=== PATIENT | female | born 1995 | race Caucasian/White ===

== ENCOUNTER 2023-03-27 15:50 | Inpatient (IN) ==
--- NOTE | 2023-03-27 16:23 | History & Physical Report ---
Date of Service March 27, 2023 Assessment & Plan (1) High blood pressure affecting in third trimester, antepartum: Plan: Patient has had a BP reading that was hypertensive. Urine dipstick was done at bedside but was negative for protein. A CBC, CMP, and urine protein/creatinine ration were ordered to assess for possible thrombocytopenia, increased transaminase levels, changes of renal function (reflective of increased creatinine levels). Although she has not yet met diagnosis of either gHTN or preeclampsia, workup is ongoing. Meanwhile she was offered elective IOL as she is >39wk and has demonstrated a hypertensive reading, and she wishes to proceed. Cervix examined by Dr. Stylse and is 480/-2 and plan will be for pitocin. History of Present Illness Chief Complaint: Patient is a 27 yo F, , w/ a PMHX of anxiety, chronic headaches, who was sent over from the OB clinic after registering a high BP reading. Primary Care Provider: NO PCP patient has been experiencing lower pelvic pain and mild abdominal cramping. Patient has been experiencing more frequent HAs over the last few weeks, for which she'd been taking Tylenol. CARPENTER's would always be relieved by Tylenol. No vision changes: no blurry, double vision or sense of halos, seeing spots around her visual line of sight. Patient endorsed lower abdominal, pain, below umbilicus but no RUQ pain. No N/V/C but increased diarrhea over last week or two. Patient does not think she has any Hx of gestational HTN, preeclampsia in h er family Hx. Patient does not endorse any recent trauma, has not had any loss of fluid or blood from the vaginal area but she is experiencing some irregular contractions. Allergies Allergy/AdvReac Type Severity Reaction Status Date / Time Sulfa (Sulfonamide Allergy Mild Rash Verified 03/27/23 15:17 Antibiotics) Home Medications Medication Instructions Recorded Confirmed Type fluoxetine [Prozac] 40 mg PO DAILY 08/30/22 03/27/23 History prenat.vits,alexander,uis-rrvq-emwry 1 tab PO DAILY 08/30/22 03/27/23 History ferrous sulfate 325 mg PO Q OTHER DAY 01/22/23 03/27/23 History Past Med/Surg History Medical History Anxiety Chicken pox History of acne Migraine Surgical History S/P wisdom tooth extraction Family History Grandfather (Maternal) Myocardial infarction Coronary heart disease Hypertension Grandmother (Maternal) Atrial fibrillation Hyperlipidemia Uterine cancer Father Hypertension Denies family history of Ovarian cancer Breast cancer Colorectal cancer Thromboembolic disorder Social History Smoking Status: Never smoker Second Hand Exposure: No; Do You Dip or Chew Tobacco: No; Hx Alcohol Use: No Hx Substance Use: No Preferred Language: Tajik Communication Ability: Effective Picker Feeder Required: No Beliefs That Will Affect Care: None marital status: marital status details: spouse Current Living Situation: Spouse Current Living Situation Comment: lives with spouse, no pets current occupational status: employed current occupation: [employer] Feels Safe at Home: Yes Safety Concerns: Feels Safe At This Time Dental Care, Regularly: Yes Seatbelt Use: always Sunscreen Use: Yes Assistive Devices: None Review of Systems Constitutional: no fever and no chills Eyes: no diplopia, not seeing flashes, no spots in vision and no worsening vision Respiratory: no cough and no dyspnea Cardiovascular: no chest pain and no palpitations Gastrointestinal: + diarrhea/loose stools; no nausea and no vomiting Physical Exam Constitutional: WD/WN, vitals as above Respiratory: normal respiratory effort, lungs clear to auscultation Cardiovascular: RRR, no murmur, no edema Gastrointestinal (Abdomen): Percussion/Palpation: + abdomen tender (right sided tenderness, +4/10 with deep palpation (uterine, not RUQ)) Neurologic: deep tendon reflexes 2+ bilaterally and moves all extremities Results & Data Results & Data Vital Signs (Past 12 Hours) Vital Signs Pulse BP 03/27/23 16:07 100 H 131/80 03/27/23 15:58 93 H 133/82 Supervising Physician Co-Signing Physician Notes Resident Physician Supervision Note: I interviewed and examined the patient. Discussed with Dr. Romo and agree with findings and plan as documented in the note. Any exceptions or clarifications are listed here: [ ] Documented By: Honey Styles MD, FACOG
[2023-03-27 16:54] LABS: Hematocrit (blood only) 33.6 % (37.0-47.0); Hemoglobin 11.1 g/dl (12.0-16.0); Mean Corpuscular Hemoglobin 28.8 pg (25.0-34.0); Mean Corpuscular Volume 87.3 fL (80.0-100.0); Mean Platelet Volume 11.2 fL (9.4-12.4); Platelet Count 219 K/uL (130-400); RDW Coefficient of Variation 13.6 % (11.5-14.5); RDW Standard Deviation 42.7 fL (36.4-46.3); Red Blood Count 3.85 M/uL (4.20-5.40); White Blood Count 9.41 K/ul (4.8-10.8)
[2023-03-27] MEDS ORDERED: LIDOCAINE 1% LOCAL 20 ML VIAL INFIL PRN (17:05)
[2023-03-27] MEDS ORDERED: OXYTOCIN 30 UNITS/500 ML BAG IV PRN ×2 (17:05)
[2023-03-27 17:07] LABS: Alanine Aminotransferase 13 U/L (7-52); Albumin Globulin Ratio 0.9 (0.9-2); Albumin Level 3.6 gm/dl (3.4-5.0); Alkaline Phosphatase 139 U/L (34-104); Anion Gap 7 (3-11); Aspartate Aminotransferase 18 U/L (13-39); BUN Creatinine Ratio 19.5 (10-20); Bilirubin,Total 0.3 mg/dl (0.2-1.0); Blood Urea Nitrogen 8 mg/dl (6-23); Calcium 9.5 mg/dl (8.6-10.3); Carbon Dioxide 21 mmol/L (21-32); Chloride 105 mmol/L (98-107); Creatinine Clr Calc Pharmacy 256.6 ml/min; Est GFR (African American) > 150.0 ml/min; Est GFR (Non-African American) 142.6 ml/min; Globulin 3.8 gm/dl (2.5-4.0); Glucose 77 mg/dl (70-99(Fasting)); Potassium 3.8 mmol/L (3.5-5.1); Sodium 133 mmol/L (136-145); Total Protein 7.4 gm/dl (6.0-8.3)
[2023-03-27 17:21] LABS: Creatinine Urine Random 29.5 mg/dl; Protein Creatinine Ratio Urine 0.2 (0-0.2); Total Protein Urine Random 5.7 mg/dl (0-11.9)
[2023-03-27] MEDS: LACTATED RINGER'S 1,000 ML IV PRN ×2 (17:39→19:41)
[2023-03-27] MEDS ORDERED: SODIUM CHLORIDE 0.9% PF INJ 10 ML VIAL ONE (18:52)
[2023-03-27] MEDS ORDERED: BUPIVACAINE 0.25% PF 30 ML VIAL ONE (18:52)
[2023-03-27] MEDS ORDERED: fentaNYL citrate PF 100 MCG/2 ML VIAL ONE (18:52)
[2023-03-27] MEDS ORDERED: ePHEDrine sulfate 50 MG/ML AMP ONE (18:52)
[2023-03-27] MEDS ORDERED: LIDOCAINE 2%/EPINEPHRINE 1:200,000 20 ML PF ONE (18:53)
[2023-03-27] MEDS ORDERED: fentaNYL 2MCG/ML ROPIVACAINE 1.25MG/ML 100 ML BAG EPI ONE (18:53)
--- NOTE | 2023-03-27 19:13 | Anesthesiology Consultation ---
Date of Service March 27, 2023 Assessment & Plan Chart Review Chart Review: Acceptable Risk for Labor Epidural Consults Requested none ASA ASA2 Proposed Anesthesia Anesthesia Type: Labor Epidural Risk / Benefits Reviewed With: PT / POA / Parent / Guardian, Accepts Plan and Informed Consent Obtained History Height/Weight Height: 5 ft 9 in Weight: 96.162 kg Allergies Allergy/AdvReac Type Severity Reaction Status Date / Time Sulfa (Sulfonamide Allergy Mild Rash Verified 03/27/23 15:17 Antibiotics) Medications Home Medications Medication Instructions Recorded Confirmed Last Taken fluoxetine [Prozac] 40 mg PO DAILY 08/30/22 03/27/23 03/26/23 20:00 prenat.vits,alexander,fyx-grns-dizbk 1 tab PO DAILY 08/30/22 03/27/23 03/26/23 20:00 ferrous sulfate 325 mg PO Q OTHER DAY 01/22/23 03/27/23 03/25/23 20:00 Active Medications Generic Name Dose Route Start Last Admin Trade Name Freq PRN Reason Stop Dose Admin Lactated Ringer's 1,000 mls @ 125 mls/hr 03/27/23 17:05 03/27/23 18:45 Lr IV 03/29/23 17:04 999 mls/hr .Q8H PRN Infusion L&D Protocol Protocol Oxytocin 30 units in 500 mls @ 4 mls/hr 03/27/23 17:05 03/27/23 19:04 Pitocin IV 03/29/23 17:04 0.24 units/hr .Q24H PRN 4 mls/hr Labor Induction/Augmentation Titration Protocol 0.24 UNITS/HR Past Medical History Medical History Anxiety Chicken pox History of acne Migraine Exercise / Class Metabolic Activity II 4-5 Yardwork/Stairs/Walk up hill Past Family History Family History Grandfather (Maternal) Myocardial infarction Coronary heart disease Hypertension Grandmother (Maternal) Atrial fibrillation Hyperlipidemia Uterine cancer Father Hypertension Denies family history of Ovarian cancer Breast cancer Colorectal cancer Thromboembolic disorder Past Surgical History Surgical History S/P wisdom tooth extraction Past Anesthesia History No Hx of Anesthesia Complications and No Family Hx of Anesthesia Complications History of PONV No Hx of PONV and No Hx of Motion Sickness Social History Smoking Status: Never smoker Do You Dip or Chew Tobacco: No Hx Alcohol Use: No Hx Substance Use: No Physical Exam Vital Signs Last Vital Signs Temp 98.1 F 03/27/23 16:41 Pulse 91 H 03/27/23 18:18 Resp 20 03/27/23 16:41 BP 134/82 03/27/23 18:18 ENMT Mouth: no dentition abnormality Thyromental Distance: > or= 3.5 Finger Breadths Mallampati Class: II Neck normal visual inspection Respiratory normal respiratory effort Auscultation: lungs clear to auscultation bilaterally Cardiovascular Rate/Rhythm: regular rate and regular rhythm Testing Laboratory Results 03/27/23 16:23 03/27/23 16:23
[2023-03-27] MEDS ORDERED: diphenhydrAMINE 50 MG/ML VIAL IV PRN (19:33)
[2023-03-27] MEDS ORDERED: NALOXONE HCL 0.4 MG/1 ML VIAL/CARP IV PRN (19:33)
[2023-03-27] MEDS ORDERED: LIDOCAINE 2%/EPINEPHRINE 1:200,000 20 ML PF EPI STA (19:33)
[2023-03-27] MEDS ORDERED: fentaNYL citrate PF 100 MCG/2 ML VIAL EPI STA (19:33)
[2023-03-27] MEDS ORDERED: NALBUPHINE HCL INJ 10 MG/ML AMP IV PRN (19:33)
[2023-03-27] MEDS ORDERED: fentaNYL 2MCG/ML ROPIVACAINE 1.25MG/ML 100 ML BAG EPI PRN (19:33)
[2023-03-27] MEDS ORDERED: LIDOCAINE 2% MPF LOCAL 5 ML VIAL EPI PRN (19:33)
[2023-03-27] MEDS ORDERED: ROPIVACAINE 0.5% PF 5 MG/ML 20 ML VIAL EPI PRN (19:33)
[2023-03-27] MEDS ORDERED: BUPIVACAINE 0.25% PF 30 ML VIAL EPI PRN (19:33)
[2023-03-27] MEDS ORDERED: fentaNYL citrate PF 100 MCG/2 ML VIAL EPI PRN (19:33)
[2023-03-27] MEDS ORDERED: ePHEDrine sulfate 50 MG/ML AMP IV PRN (19:33)
[2023-03-27] MEDS ORDERED: BUPIVACAINE 0.25% PF 30 ML VIAL EPI STA (19:33)
[2023-03-27] MEDS ORDERED: ONDANSETRON INJ 2 MG/ML 2 ML VIAL IV PRN (19:33)
[2023-03-27] MEDS ORDERED: NALOXONE HCL 1 MG in SODIUM CHLORIDE 0.9% 1,000 ML IV PRN (19:33)
[2023-03-27] MEDS ORDERED: SODIUM CHLORIDE 0.9% PF INJ 10 ML VIAL EPI PRN (19:33)
[2023-03-27] MEDS ORDERED: SODIUM CHLORIDE 0.9% PF INJ 10 ML VIAL EPI STA (19:33)
--- NOTE | 2023-03-28 00:24 | Delivery Summary ---
Vaginal Delivery Summary Date of Service March 28, 2023 Vaginal Delivery Summary DIAGNOSES: 1. Barney intrauterine at 39w4d gestation. 2. Induction of labor. 3. Group B Streptococcus Neg. PROCEDURE: Spontaneous vaginal delivery and repair of second degree laceration. SURGEON: Honey Styles MD. PHARMACY PICKING TECHNICIAN: None. ESTIMATED BLOOD LOSS: 200 mL. COMPLICATIONS: None. PLACENTA: Spontaneous and intact with a 3-vessel cord. DISPOSITION: Stable to labor and delivery. DESCRIPTION: The patient pushed well and brought the head to in DOA position. The infant's head was allowed to deliver with contraction force and no further active pushing, with the perineum protected during this time. There was one loose nuchal cord and compound presentation of both arms around the neck; the body was delivered through the cord rather than reducing it. The right shoulder was anterior. The shoulders and body delivered without any difficulty, and the was placed on the maternal abdomen. It was vigorous and moving all extremities, and making respiratory efforts. The cord was doubly clamped by the MD and then cut by the FOB. The placenta delivered spontaneously and was noted to be intact and with a 3VC. The cervix, vagina and perineum were examined and were found to have a second degree perineal laceration which was repaired in the usual manner with vicryl suture, including a crown stitch to rebuild the perineal body. The fundus was firm and lochia minimal immediately after delivery. [facility] [place] Vaginal Delivery Charge Vaginal Delivery Codes: 80936 global code for the antepartum, delivery, and post-
[2023-03-28] MEDS ORDERED: DIPHTHERIA/TETANUS/PERTUSSIS Vaccine (Tdap, Age 7+yrs) 0.5mL SYR/VL IM ONE (00:30)
[2023-03-28] MEDS ORDERED: ACETAMINOPHEN 325 MG TAB PO PRN (00:30)
[2023-03-28] MEDS ORDERED: HYDROCORTISONE ACETATE 25 MG SUPP PR PRN (00:30)
[2023-03-28] MEDS ORDERED: oxyCODONE/ACETAMINOPHEN 5mg/325mg TAB PO PRN (00:30)
[2023-03-28] MEDS ORDERED: BENZOCAINE 20% SPRY 85 APPLN/85 GM CAN EXT PRN (00:30)
[2023-03-28] MEDS ORDERED: COUGH DROP (SUGAR FREE) LOZ 24 LOZ/1 BOX BUCCAL PRN (02:59)
--- NOTE | 2023-03-28 06:16 | Obstetrical Progress Note ---
Date of Service March 28, 2023 Assessment & Plan (1) Vaginal delivery: Plan 27 yo status post induced labor/vaginal delivery on 03/27/23, w/ 2nd deg LAC - Pt doing well clinically. Feels well today. Eating well, voiding well, ambulating well. Pain well controlled with PRN pain meds. - Routine care -- OOB, ambulation, diet progression as tolerated Vital Signs reviewed and WNL. (Tmax at 36.7) except as noted: P 117 after delivery, BP w/ diastolic 57 hour and half post delivery Hemoglobin Reviewed. 10.1 (03/27/23) ___ (today). Blood Type: A+, GBS-, Rubella Immune. Encourage ambulation, monitor and control pain with Motrin PRN, resume regular diet, monitor lochia. Breast feeding encouraged. After discharge will have 6 week follow-up with ___. Pt counselled on discharge instructions (only if they are going home that day). Subjective Ambulation: ambulating normally Voiding: no voiding problems Passing Gas:: Yes Diet Tolerance:: regular diet Lochia:: Moderate Feeding Type:: breast feeding Current Pain Level(1-10): 2 (perineal lac pain) Constitutional: no fever or no chills Eyes: no diplopia, no seeing flashes, no spots in vision or no worsening vision Respiratory: no cough or no dyspnea Cardiovascular: no chest pain or no palpitations Gastrointestinal: no nausea, no vomiting or no diarrhea/loose stools Neurologic: no headache(s) Physical Exam Constitutional WD/WN, vitals as above Respiratory normal respiratory effort, lungs clear to auscultation Cardiovascular RRR, no murmur, no edema Gastrointestinal (Abdomen) normal bowel sounds, soft, nontender, no hepatosplenomegaly Neurologic moves all extremities Results & Data Vital Signs (Past 12 Hours) Vital Signs Temp Pulse Resp BP Pulse Ox 03/28/23 01:49 18 03/28/23 01:19 18 03/28/23 00:49 18 03/28/23 00:36 18 03/28/23 00:19 18 03/28/23 01:04 18 03/28/23 00:19 20 03/27/23 19:15 18 03/28/23 02:19 116 H 136/80 03/28/23 02:04 117 H 126/80 03/28/23 01:49 106 H 136/79 03/28/23 01:34 107 H 130/79 03/28/23 01:19 112 H 131/57 L 03/28/23 01:07 104 H 125/68 03/28/23 00:49 103 H 150/101 H 03/27/23 23:30 18 03/27/23 23:30 18 03/28/23 00:36 110 H 144/83 H 03/28/23 00:19 114 H 128/65 03/28/23 00:18 108 H 99 03/28/23 00:13 112 H 99 03/28/23 00:08 122 H 98 03/28/23 00:03 121 H 100 03/27/23 23:58 97 03/27/23 23:58 134 H 03/27/23 23:53 100 03/27/23 23:53 112 H 03/27/23 23:48 98 03/27/23 23:48 101 H 03/27/23 23:49 96 H 03/27/23 23:49 113/72 03/27/23 23:43 100 03/27/23 23:43 96 H 03/27/23 23:38 97 03/27/23 23:38 102 H 03/27/23 23:35 105 H 03/27/23 23:35 111/72 03/27/23 23:33 100 03/27/23 23:33 103 H 03/27/23 23:28 99 03/27/23 23:28 100 H 03/27/23 23:00 18 03/27/23 23:00 18 03/27/23 23:23 99 03/27/23 23:23 97 H 03/27/23 23:18 100 03/27/23 23:18 106 H 03/27/23 23:19 103 H 03/27/23 23:19 138/84 03/27/23 22:45 18 03/27/23 22:45 36.8 C 18 03/27/23 23:13 99 03/27/23 23:13 100 H 03/27/23 23:08 99 03/27/23 23:08 97 H 03/27/23 23:04 100 H 03/27/23 23:04 137/87 03/27/23 23:03 99 03/27/23 23:03 96 H 03/27/23 22:58 98 03/27/23 22:58 95 H 03/27/23 22:53 99 03/27/23 22:53 98 H 03/27/23 22:30 18 03/27/23 22:30 18 03/27/23 22:48 98 03/27/23 22:48 97 H 03/27/23 22:49 96 H 03/27/23 22:49 133/82 03/27/23 22:00 18 03/27/23 22:00 18 03/27/23 22:43 98 03/27/23 22:43 96 H 03/27/23 22:38 98 03/27/23 22:38 103 H 03/27/23 22:36 97 H 03/27/23 22:36 139/83 03/27/23 22:33 99 03/27/23 22:33 92 H 03/27/23 22:28 99 03/27/23 22:28 93 H 03/27/23 22:23 98 03/27/23 22:23 103 H 03/27/23 22:20 91 H 03/27/23 22:20 124/71 03/27/23 22:18 98 03/27/23 22:18 93 H 03/27/23 22:13 99 03/27/23 22:13 95 H 03/27/23 22:08 99 03/27/23 22:08 93 H 03/27/23 22:04 91 H 03/27/23 22:04 131/81 03/27/23 22:03 99 03/27/23 22:03 90 03/27/23 21:58 99 03/27/23 21:58 92 H 03/27/23 21:53 100 03/27/23 21:53 89 03/27/23 21:30 18 03/27/23 21:30 18 03/27/23 21:50 92 H 03/27/23 21:50 127/79 03/27/23 21:48 99 03/27/23 21:48 89 03/27/23 21:43 98 03/27/23 21:43 91 H 03/27/23 21:38 99 03/27/23 21:38 86 03/27/23 21:35 89 03/27/23 21:35 124/87 03/27/23 21:33 99 03/27/23 21:33 89 03/27/23 21:28 100 03/27/23 21:28 94 H 03/27/23 21:23 100 03/27/23 21:23 89 03/27/23 21:19 88 03/27/23 21:19 109/61 03/27/23 21:18 98 03/27/23 21:18 89 03/27/23 21:13 99 03/27/23 21:13 92 H 03/27/23 21:00 18 03/27/23 21:00 18 03/27/23 21:08 99 03/27/23 21:08 90 03/27/23 21:04 88 03/27/23 21:04 107/63 03/27/23 21:03 98 03/27/23 21:03 91 H 03/27/23 20:58 99 03/27/23 20:58 90 03/27/23 20:53 98 03/27/23 20:53 93 H 03/27/23 20:49 94 H 03/27/23 20:49 118/68 03/27/23 20:48 100 03/27/23 20:48 92 H 03/27/23 20:43 99 03/27/23 20:43 91 H 03/27/23 20:38 98 03/27/23 20:38 95 H 03/27/23 20:30 18 03/27/23 20:30 36.7 C 18 03/27/23 20:33 99 03/27/23 20:33 92 H 03/27/23 20:31 93 H 03/27/23 20:31 123/67 03/27/23 20:28 100 03/27/23 20:28 96 H 03/27/23 20:23 98 03/27/23 20:23 97 H 03/27/23 19:32 18 03/27/23 19:32 18 03/27/23 19:34 18 03/27/23 19:34 18 03/27/23 19:36 18 03/27/23 19:36 18 03/27/23 19:40 18 03/27/23 19:40 18 03/27/23 19:44 18 03/27/23 19:44 18 03/27/23 20:21 100 H 03/27/23 20:21 142/94 H 03/27/23 19:30 18 03/27/23 19:30 18 03/27/23 20:00 18 03/27/23 20:00 18 03/27/23 20:18 99 03/27/23 20:18 103 H 03/27/23 20:17 97 H 03/27/23 20:17 134/95 03/27/23 20:13 99 03/27/23 20:13 99 H 03/27/23 20:11 102 H 03/27/23 20:11 145/79 H 03/27/23 20:08 99 03/27/23 20:08 99 H 03/27/23 20:07 98 H 03/27/23 20:07 134/85 03/27/23 20:03 98 03/27/23 20:03 95 H 03/27/23 20:01 97 H 03/27/23 20:01 136/79 03/27/23 19:58 98 03/27/23 19:58 98 H 03/27/23 19:57 96 H 03/27/23 19:57 143/83 H 03/27/23 19:53 98 03/27/23 19:53 101 H 03/27/23 19:52 100 H 03/27/23 19:52 146/71 H 03/27/23 19:48 99 03/27/23 19:48 101 H 03/27/23 19:44 100 H 03/27/23 19:44 138/76 03/27/23 19:43 99 03/27/23 19:43 98 H 03/27/23 19:42 94 H 03/27/23 19:42 149/84 H 03/27/23 19:40 103 H 03/27/23 19:40 147/83 H 03/27/23 19:38 99 03/27/23 19:38 102 H 03/27/23 19:38 143/73 H 03/27/23 19:36 99 H 03/27/23 19:36 135/74 03/27/23 19:34 98 H 03/27/23 19:34 132/77 03/27/23 19:33 99 03/27/23 19:33 99 H 03/27/23 19:32 99 H 03/27/23 19:32 140/80 03/27/23 19:30 141/81 H 03/27/23 19:28 100 03/27/23 19:28 92 H 03/27/23 19:28 135/78 03/27/23 19:23 98 03/27/23 19:23 98 H 03/27/23 19:18 99 03/27/23 19:18 95 H 03/27/23 19:13 98 03/27/23 19:13 96 H 03/27/23 18:18 91 H 03/27/23 18:18 134/82
[2023-03-28] MEDS ORDERED: FLUoxetine HCL 20 MG CAP PO SCH (09:00)
[2023-03-28] MEDS: PRENATAL VITAMIN 1 TAB PO SCH (10:14)
[2023-03-28] MEDS: DOCUSATE SODIUM 100 MG CAP PO SCH ×2 (10:14→21:46)
[2023-03-28] MEDS: IBUPROFEN 600 MG TAB PO PRN ×2 (10:14→17:49)
--- NOTE | 2023-03-28 15:19 | Anesthesia Procedure Note ---
Date of Service March 28, 2023 Anesthesia Post Epidural Note Vital Signs Vital Signs: Temp Pulse Resp BP Pulse Ox O2 Del Method 36.5 C 118 H 18 103/71 96 Room Air 03/28/23 03:45 03/28/23 03:45 03/28/23 03:45 03/28/23 03:45 03/28/23 03:45 03/28/23 03:45 Notes Mental Status: alert / awake / arousable Nausea / Vomiting: adequately controlled Pain: adequately controlled Airway Patency, RR, SpO2: stable & adequate BP & HR: stable & adequate Hydration State: stable & adequate Neuraxial Anesthesia: was administered and sensory block is resolving Anesthetic Complications: no major complications apparent and Pt Satisfied with anesthetic care Epidural: Removed without complications and With tip intact
--- NOTE | 2023-03-28 20:19 | Obstetrical Progress Note ---
Date of Service <Bradford Romo MD - Last Filed: 03/29/23 07:40> March 28, 2023 Assessment & Plan <Bradford Romo MD - Last Filed: 03/29/23 07:40> (1) Vaginal delivery: Plan 27 yo , status post on 03/28/23, w/ 2nd deg LAC - Pt doing well clinically. Feels well today. Eating well, voiding well, ambulating well. Pain well controlled with PRN pain meds. - Routine care -- OOB, ambulation, diet progression as tolerated Vital Signs reviewed and WNL. (Tmax at 37.3) except as noted: P as high as 118 following delivery. BP has been normotensive since delivery early on 03/28/23. Hemoglobin Reviewed. 11.1 (03/27/23) ___ (today). Blood Type: A+, GBS-, Rubella Immune. Encourage ambulation, monitor and control pain with Motrin PRN, resume regular diet, monitor lochia. Breast feeding encouraged. After discharge will have 6 week follow-up with Dr. Styles. Pt counselled on discharge instructions. <Mara Casas MD, FACOG - Last Filed: 03/29/23 07:42> (1) Vaginal delivery: Subjective <Bradford Romo MD - Last Filed: 03/29/23 07:40> Ambulation: ambulating normally Voiding: no voiding problems Passing Gas:: Yes Diet Tolerance:: regular diet Lochia:: Moderate Feeding Type:: breast feeding Current Pain Level(1-10): 1 (cramping abdominal pain) Constitutional: no fever or no chills Eyes: no diplopia, no seeing flashes, no spots in vision or no worsening vision Respiratory: no cough or no dyspnea Cardiovascular: no chest pain or no palpitations Gastrointestinal: no nausea, no vomiting, no constipation (has had BM) or no diarrhea/loose stools Genitourinary (female): no dysuria Musculoskeletal: no myalgia (no calf pain) Neurologic: no tingling or no numbness Physical Exam <Bradford Romo MD - Last Filed: 03/29/23 07:40> Constitutional WD/WN, vitals as above Respiratory normal respiratory effort, lungs clear to auscultation Cardiovascular RRR, no murmur, no edema Gastrointestinal (Abdomen) normal bowel sounds, soft, nontender, no hepatosplenomegaly Musculoskeletal Extremities: extremities normal to inspection (no calf pain or tenderness) Results & Data <Bradford Romo MD - Last Filed: 03/29/23 07:40> Vital Signs (Past 12 Hours) Vital Signs Temp Pulse Pulse Resp BP BP Pulse Ox 03/28/23 12:55 37.3 C 104 H 18 119/78 98 03/28/23 09:00 36.9 C 95 H 18 124/76 97 03/28/23 15:30 36.6 C 98 H 16 122/79 98 O2 Del Method 03/28/23 12:55 Room Air 03/28/23 09:00 Room Air 03/28/23 15:30 Room Air <Mara Casas MD, FACOG - Last Filed: 03/29/23 07:42> Co-Signing Physician Notes Resident Physician Supervision Note: I was present with [Aamir] during the history and exam. I discussed the case with the resident and agree with the findings and plan as documented in the note. Any exceptions or clarifications are listed here: [None] Documented By: Mara Casas MD, FACOG
[2023-03-29 06:47] LABS: Hematocrit (blood only) 30.6 % (37.0-47.0); Hemoglobin 9.9 g/dl (12.0-16.0); Mean Corpuscular Hgb Conc 32.4 g/dL (32.0-36.0); Mean Corpuscular Volume 89.7 fL (80.0-100.0); Mean Platelet Volume 11.4 fL (9.4-12.4); Platelet Count 180 K/uL (130-400); RDW Coefficient of Variation 13.9 % (11.5-14.5); RDW Standard Deviation 45.2 fL (36.4-46.3); Red Blood Count 3.41 M/uL (4.20-5.40); White Blood Count 10.38 K/ul (4.8-10.8)
[2023-03-29] MEDS: IBUPROFEN 600 MG TAB PO PRN (07:38)
[2023-03-29] MEDS: DOCUSATE SODIUM 100 MG CAP PO SCH (07:38)
[2023-03-29] MEDS: PRENATAL VITAMIN 1 TAB PO SCH (07:38)
== END 2023-03-29 11:55 | disposition home or self-care (01) | DRG 807 ==
LOC: OPB 15:50 → 4S1 15:52 → 4E2 03-28 02:47

== ENCOUNTER 2025-01-18 10:06 | Inpatient (IN) ==
[2025-01-18] MEDS ORDERED: LIDOCAINE 1% LOCAL 20 ML VIAL INFIL PRN (10:29)
[2025-01-18 11:03] LABS: Hematocrit (blood only) 31.4 % (37.0-47.0); Hemoglobin 10.2 g/dl (12.0-16.0); Mean Corpuscular Hemoglobin 27.3 pg (25.0-34.0); Mean Corpuscular Volume 84.2 fL (80.0-100.0); Platelet Count 238 K/uL (130-400); RDW Standard Deviation 41.0 fL (36.4-46.3); Red Blood Count 3.73 M/uL (4.20-5.40); White Blood Count 8.41 K/ul (4.8-10.8)
[2025-01-18] MEDS: LACTATED RINGER'S 1,000 ML IV PRN (11:43)
--- NOTE | 2025-01-18 11:50 | History & Physical Report ---
Date of Service January 18, 2025 Assessment & Plan (1) Encounter for supervision of normal intrauterine in multigravida, antepartum: Plan: 29 yo at 40 1/7 wga presents for IOL VSS Fetus cat 1 Labor - will start w/ pit GBS neg epidural prn Admission and Anticipated Discharge Date Admission Date: January 18, 2025 History of Present Illness Chief Complaint: IOL Primary Care Provider: NO PCP 29 yo at 40 1/7 wga presents for IOL. 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 current regular cycles denies hx stis Allergies Allergy/AdvReac Type Severity Reaction Status Date / Time Sulfa (Sulfonamide Allergy Mild Rash Verified 01/18/25 10:28 Antibiotics) Home Medications Medication Instructions Recorded Confirmed Type fluoxetine [Prozac] 40 mg PO DAILY 08/30/22 01/18/25 History aqqoxclj-bhw-Qa-FA 1 tab PO DAILY 06/29/24 01/18/25 History [ Plus] Patient History Medical History High blood pressure affecting in third trimester, antepartum Migraine Anxiety Chicken pox History of acne Surgical History S/P wisdom tooth extraction Family History Grandfather (Maternal) Myocardial infarction Coronary heart disease Hypertension Grandmother (Maternal) Atrial fibrillation Hyperlipidemia Uterine cancer Father Hypertension Denies family history of Ovarian cancer Breast cancer Colorectal cancer Thromboembolic disorder Social History Smoking Status: Never smoker Second Hand Exposure: No; Do You Dip or Chew Tobacco: No; Hx Alcohol Use: No Hx Substance Use: No Preferred Language: Maltese Communication Ability: Effective Drafting Technician Required: No Beliefs That Will Affect Care: None marital status: marital status details: Geoff Obrien (29) [phone] Current Living Situation: Spouse Current Living Situation Comment: lives with spouse and son, no pets current occupational status: employed current occupation: [employer] How many Children do You have: 1 Feels Safe at Home: Yes Safety Concerns: Feels Safe At This Time Dental Care, Regularly: Yes Seatbelt Use: always Sunscreen Use: Yes Assistive Devices: None Physical Exam Genitourinary: OB Exam Abdomen: + vertex and + estimated weight (7-8) Manual OB Exam: + cervical dilation 4 cm, + cervical effacement 50% and + station -2 OB Exam Monitor Tracing: + external FHT monitor used, + external uterine monitor used (q6) and + category I (130/mod/+accel/-decel) Results & Data Vital Signs (Past 12 Hours) Vital Signs Temp Pulse Resp BP 01/18/25 10:35 98.2 F 18 01/18/25 10:22 97 H 118/66 Laboratory Results OB Labs: Blood Type A Positive 07/01/24 Antibody Screen NEGATIVE 07/01/24 Hgb 10.3 g/dl (12.0-16.0) L 10/20/24 Hct 31.3 % (37.0-47.0) L 10/20/24 MCV 89.4 fL (80.0-100.0) 07/01/24 Plt Count 244 K/uL (130-400) 07/01/24 Rubella IgG Antibody Immune (Immune) 07/01/24 RPR Nonreactive (Nonreactive) 09/03/22 Treponema pallidum Ab Negative (Negative) 10/20/24 Hep Bs Antigen Negative (Negative) 07/01/24 Hep Bs Antigen NON-REACTIVE (NON-REACTIVE) 09/03/22 Hepatitis C Antibody Negative (Negative) 07/01/24 Hepatitis C Ab (EIA) NON-REACTIVE (NON-REACTIVE) 09/03/22 HIV 1&2 Ab/P24 Ag 4thGn Negative (Negative) 07/01/24 HIV (1&2) Ag & Ab Conf NON-REACTIVE (NON-REACTIVE) 09/03/22 Glucose 1 Hr 50 gm 151 mg/dl (70-130) H 10/20/24 OB Optional Labs: Chlamydia trachomatis RNA Not Detected (NotDetected) 07/01/24 Neisseria gonorrhoeae RNA Not Detected (NotDetected) 07/01/24 Labs Reviewed: horizon 14-negative--mln cfdna-low risk--mln gbs neg Diagnostic Findings posterior plac Coding Level of Care Code None Diagnoses Encounter for supervision of normal intrauterine in multigravida, antepartum Z34.80
[2025-01-18] MEDS: OXYTOCIN 30 UNITS/NSS 30 UNITS/500 ML BAG IV PRN ×2 (12:00→17:49)
[2025-01-18] MEDS ORDERED: NALOXONE HCL 1 MG in SODIUM CHLORIDE 0.9% 1,000 ML IV PRN (13:48)
[2025-01-18] MEDS ORDERED: NALBUPHINE HCL INJ 10 MG/ML AMP IV PRN (13:48)
[2025-01-18] MEDS ORDERED: SODIUM CHLORIDE 0.9% PF INJ 10 ML VIAL EPI PRN (13:48)
[2025-01-18] MEDS ORDERED: fentANYL 2 MCG/ML BUPIVacaine 0.125%-NSS 100ML BAG EPI PRN (13:48)
[2025-01-18] MEDS ORDERED: ROPIVACAINE 0.5% PF 5 MG/ML 20 ML VIAL EPI PRN (13:48)
[2025-01-18] MEDS ORDERED: diphenhydrAMINE 50 MG/ML VIAL IV PRN (13:48)
[2025-01-18] MEDS ORDERED: NALOXONE HCL 0.4 MG/1 ML VIAL/CARP IV PRN (13:48)
[2025-01-18] MEDS ORDERED: ONDANSETRON INJ 2 MG/ML 2 ML VIAL IV PRN (13:48)
[2025-01-18] MEDS ORDERED: LIDOCAINE 2% MPF LOCAL 5 ML VIAL EPI PRN (13:48)
[2025-01-18] MEDS: BUPIVACAINE 0.25% PF 30 ML VIAL ONE (14:02)
[2025-01-18] MEDS: fentANYL 2 MCG/ML BUPIVacaine 0.125%-NSS 100ML BAG ONE (14:10)
--- NOTE | 2025-01-18 14:12 | Anesthesiology Consultation ---
Date of Service January 18, 2025 Assessment & Plan (1) Encounter for pre-operative examination: Chart Review Chart Review: Patient NOT seen in Pre Admission Testing and Acceptable Risk for Labor Epidural Consults Requested none History Height/Weight Height: 5 ft 8 in Weight: 92.87 kg Allergies Allergy/AdvReac Type Severity Reaction Status Date / Time Sulfa (Sulfonamide Allergy Mild Rash Verified 01/18/25 10:28 Antibiotics) Medications Home Medications Medication Instructions Recorded Confirmed Last Taken fluoxetine [Prozac] 40 mg PO DAILY 08/30/22 01/18/25 01/17/25 08:00 [id number] 1 tab PO DAILY 06/29/24 01/18/25 01/18/25 08:00 [ Plus] Active Medications Generic Name Dose Route Start Last Admin Trade Name Freq PRN Reason Stop Dose Admin Oxytocin 30 units in 500 mls @ 6 mls/hr 01/18/25 10:29 01/18/25 13:00 Pitocin 30 Units/Nss IV 01/20/25 10:28 0.36 units/hr .Q24H PRN 6 mls/hr Labor Induction/Augmentation Titration Protocol 0.36 UNITS/HR Lactated Ringer's 1,000 mls @ 125 mls/hr 01/18/25 10:29 01/18/25 11:43 Lr IV 01/20/25 10:28 125 mls/hr .Q8H PRN Administration L&D Protocol Protocol Past Medical History Medical History High blood pressure affecting in third trimester, antepartum Migraine Anxiety Chicken pox History of acne Past Family History Family History Grandfather (Maternal) Myocardial infarction Coronary heart disease Hypertension Grandmother (Maternal) Atrial fibrillation Hyperlipidemia Uterine cancer Father Hypertension Denies family history of Ovarian cancer Breast cancer Colorectal cancer Thromboembolic disorder Past Surgical History Surgical History S/P wisdom tooth extraction Social History Smoking Status: Never smoker Do You Dip or Chew Tobacco: No Hx Alcohol Use: No Hx Substance Use: No substance use type: does not use Physical Exam Vital Signs Last Vital Signs Temp 98.8 F 01/18/25 13:00 Pulse 102 H 01/18/25 14:09 Resp 18 01/18/25 13:00 BP 124/75 01/18/25 14:08 Pulse Ox 98 01/18/25 14:09 Testing Laboratory Results 01/18/25 10:40
[2025-01-18] MEDS: BUPIVACAINE 0.25% PF 30 ML VIAL EPI STA (14:14)
[2025-01-18] MEDS: SODIUM CHLORIDE 0.9% PF INJ 10 ML VIAL ONE (14:14)
[2025-01-18] MEDS: LIDOCAINE 2%/EPINEPHRINE 1:200,000 20 ML PF ONE (14:14)
[2025-01-18] MEDS: SODIUM CHLORIDE 0.9% PF INJ 10 ML VIAL EPI STA (14:15)
[2025-01-18] MEDS: LIDOCAINE 2%/EPINEPHRINE 1:200,000 20 ML PF EPI STA (14:15)
--- NOTE | 2025-01-18 15:08 | Labor Progress Brief Note ---
Date of Service January 18, 2025 Subjective comfortable w/ epidural Assessment & Plan (1) Encounter for supervision of normal intrauterine in multigravida, antepartum: Plan: 29 yo at 40 1/7 wga presents for IOL VSS Fetus cat 1 Labor - pit at 12, now s/p arom, tolerated well. Continue induction GBS neg epidural in place Admission and Anticipated Discharge Date Admission Date: January 18, 2025 Physical Exam Genitourinary: Manual OB Exam: + cervical dilation 5 cm, + cervical effacement 70%, + station -2 and + amniotic fluid (arom clear) OB Exam Monitor Tracing: + external FHT monitor used, + external uterine monitor used (q3) and + category I (150/mod/+accel/-decel) Results & Data Vital Signs (Past 12 Hours) Vital Signs Temp Pulse Resp BP Pulse Ox 01/18/25 15:04 98 01/18/25 15:04 98 H 01/18/25 14:59 99 01/18/25 14:59 115 H 01/18/25 14:54 99 01/18/25 14:54 116 H 01/18/25 14:52 108 H 01/18/25 14:52 117/75 01/18/25 14:49 100 01/18/25 14:49 120 H 01/18/25 14:44 99 01/18/25 14:44 105 H 01/18/25 14:39 99 01/18/25 14:39 100 H 01/18/25 14:37 104 H 01/18/25 14:37 119/73 01/18/25 14:34 98 01/18/25 14:34 109 H 01/18/25 14:29 98 01/18/25 14:29 103 H 01/18/25 14:24 97 01/18/25 14:24 109 H 01/18/25 14:21 97 H 01/18/25 14:21 121/72 01/18/25 14:19 97 01/18/25 14:19 102 H 01/18/25 14:17 98 H 01/18/25 14:17 128/73 01/18/25 14:14 98 01/18/25 14:14 112 H 01/18/25 14:11 110 H 01/18/25 14:11 124/76 01/18/25 14:09 98 01/18/25 14:09 102 H 01/18/25 14:08 106 H 01/18/25 14:08 124/75 01/18/25 14:07 95 H 01/18/25 14:07 123/79 01/18/25 14:04 98 01/18/25 14:04 96 H 01/18/25 14:04 141/78 H 01/18/25 14:01 90 01/18/25 14:01 125/64 01/18/25 13:59 100 01/18/25 13:59 99 H 01/18/25 13:54 100 01/18/25 13:54 90 01/18/25 13:01 89 01/18/25 13:01 111/66 01/18/25 13:00 18 01/18/25 13:00 98.8 F 18 01/18/25 10:35 98.2 F 18 01/18/25 10:22 97 H 118/66 Coding Level of Care Code None Diagnoses Encounter for supervision of normal intrauterine in multigravida, antepartum Z34.80
[2025-01-18] MEDS ORDERED: NURSING L&D Epidural Breakthrough Pain Update ONE (16:05)
[2025-01-18] MEDS: BUPIVACAINE 0.25% PF 30 ML VIAL EPI PRN (16:25)
--- NOTE | 2025-01-18 16:26 | Anesthesia Procedure Note ---
Date of Service January 18, 2025 Anesthesia Epidural Re-Dose Vital Signs Temp Pulse Resp BP Pulse Ox 98.1 F 101 H 18 123/72 100 01/18/25 15:09 01/18/25 16:24 01/18/25 13:00 01/18/25 16:22 01/18/25 16:24 Notes Pain Intensity: 2 Dilatation (cm): 5.0 Effacement (%): 70 Called by nursing to evaluate epidural as the patient is having increased pain. The epidural was re-dosed with the following medications (all medications via epidural route) after negative aspiration of the epidural catheter for CSF/HEME. 0.25% Bupivacaine (6ml) with 100 mcg Fentanyl After Epidural Re-Dose Mental Status: alert / awake / arousable Pain: improving with treatment Airway Patency, RR, SpO2: stable & adequate BP & HR: stable & adequate
--- NOTE | 2025-01-18 17:20 | Delivery Summary ---
Vaginal Delivery Summary Date of Service January 18, 2025 Vaginal Delivery Summary and 2nd Degree LAC PREOPERATIVE DIAGNOSIS: 1. Single intrauterine at 40 1/7 wga 2. Induction of labor POSTOPERATIVE DIAGNOSIS: 1. Single intrauterine at 40 1/7 wga 2. Induction of labor 3. Delivered PROCEDURE: 1. Normal spontaneous vaginal delivery. SURGEON: Pretty Quiroz MD ANESTHESIA: Epidural. QUANTITATIVE BLOOD LOSS: 117 mL FLUIDS: Continuous LR. URINE OUTPUT: 100cc by straight cath following delivery COMPLICATIONS: None. CONDITION: Stable. INDICATIONS: 29 yo at 40 1/7 wga presented for IOL. She was 4cm on arrival and started on pitocin. She received an epidural and underwent arom. She progressed to complete and desired to push FINDINGS: A viable male infant, weight pending with Apgars of 8 and 9 at 1 and 5 minutes respectively. SPECIMEN: Cord blood OPERATIVE REPORT: The patient progressed to 10 cm, 100% effaced and +2 station, pushed over intact perineum with anesthesia to deliver a viable male infant, weight and Apgars as above. Head of delivered in MILY position. No nuchal cord was present. Body and shoulders were delivered without difficulty. was delivered to maternal abdomen and nursing staff. Delayed cord clamping was performed for 60 seconds. Cord was clamped and cut. Cord blood was obtained. Placenta delivered spontaneously intact with 3-vessel cord. IV oxytocin and fundal massage were given for excellent hemostasis. Vagina, cervix, perineum, and placenta were inspected. Second degree laceration was repaired using 3-0 vicryl, there was excellent hemostasis. Sponge and needle counts correct x2. No sponges were left behind. Mother and stable in immediate period. [facility] [place] Vaginal Delivery Codes: 94883 global code for the antepartum, delivery, and post- Delivery Type Details: and 2nd Degree LAC
[2025-01-18] MEDS ORDERED: ACETAMINOPHEN 325 MG TAB PO PRN (18:11)
[2025-01-18] MEDS ORDERED: OXYTOCIN 30 UNITS/NSS 30 UNITS/500 ML BAG IV PRN (18:11)
[2025-01-18] MEDS ORDERED: BENZOCAINE 20% SPRY 85 APPLN/85 GM CAN EXT PRN (18:11)
[2025-01-18] MEDS ORDERED: HYDROCORTISONE ACETATE 25 MG SUPP PR PRN (18:11)
[2025-01-18] MEDS: DIPHTHER/TETAN/PERTUS Vaccine (Tdap, Adol/Adult) 0.5mL IM ONE (18:44)
--- NOTE | 2025-01-18 19:01 | Anesthesia Procedure Note ---
Date of Service January 18, 2025 Anesthesia Post Epidural Note Vital Signs Vital Signs: Temp Pulse Resp BP Pulse Ox 36.8 C 106 H 18 110/75 100 01/18/25 16:25 01/18/25 18:52 01/18/25 16:25 01/18/25 18:52 01/18/25 17:54 Notes Mental Status: alert / awake / arousable Patient Amnestic to Procedure: No Nausea / Vomiting: adequately controlled Pain: adequately controlled Airway Patency, RR, SpO2: stable & adequate BP & HR: stable & adequate Hydration State: stable & adequate Neuraxial Anesthesia: sensory block resolved Anesthetic Complications: no major complications apparent Epidural: Removed without complications and With tip intact
[2025-01-18] MEDS ORDERED: Nursing to Pharmacy Communication SCH (19:15)
[2025-01-18] MEDS: DOCUSATE SODIUM 100 MG CAP PO SCH (22:08)
[2025-01-18] MEDS: IBUPROFEN 600 MG TAB PO PRN (23:31)
--- NOTE | 2025-01-19 06:07 | Obstetrical Progress Note ---
Date of Service January 19, 2025 Assessment & Plan (1) care and examination: Plan: Patient is post status vaginal delivery with 2nd degree laceration repair day 1. Patient is currently stable. Patient desires to go home. Will discharge today. (2) Second degree perineal laceration during delivery: Plan: Had 2nd degree laceration during delivery. Patient is currently stable. Some burning pain while urinating. Admission and Anticipated Discharge Date Admission Date: January 18, 2025 Supervising Physician Co-Signing Physician Notes Resident Physician Supervision Note: I interviewed and examined the patient. Discussed with Dr. Altamirano and agree with findings and plan as documented in the note. Any exceptions or clarifications are listed here: PP1 s/p , doing well. VSS, desires dc at 24hrs Documented By: Pretty Quiroz MD Subjective 29 yo post- day 1 s/p [] with 2nd degree laceration repair. Ambulation: ambulating normally Voiding: no voiding problems Passing Gas:: Yes Diet Tolerance:: regular diet Feeding Type:: breast feeding Current Pain Level:0/10 Resting comfortably this AM in NAD. Patient admits to burning pain while peeing but thinks its from the tear. Denies fevers/chills, CARPENTER, CP/palp, SOB/cough/wheezing, N/V, LE pain, breast pain/dschrg, Review of Systems Review of Systems: as per subjective HPI Physical Exam Constitutional: WD/WN, vitals as above Respiratory: normal respiratory effort, lungs clear to auscultation Cardiovascular: Rate/Rhythm: regular rate and regular rhythm Heart Sounds: normal S1 and normal S2; no murmur Extremities: + edema (trace in LE b/l); no calf tenderness Gastrointestinal (Abdomen): Percussion/Palpation: abdomen soft; abdomen nontender Skin: no rashes, warm and dry Psychiatric: Eye Contact: good eye contact Speech: normal rate/rhythm/volume of speech Thought Process: linear/logical thought process Genitourinary: uterus is firm and 1cm above umbilicus Results & Data Vital Signs (Past 12 Hours) Vital Signs Temp Pulse Pulse Resp BP BP Pulse Ox 01/19/25 03:10 36.7 C 90 20 128/84 97 01/18/25 23:25 36.7 C 102 H 20 117/74 98 01/18/25 21:42 36.5 C 89 18 117/82 98 01/18/25 19:21 118 H 01/18/25 19:21 128/76 01/18/25 19:20 36.9 C 18 01/18/25 19:07 120 H 01/18/25 19:07 153/65 H 01/18/25 18:52 106 H 01/18/25 18:52 110/75 01/18/25 18:37 105 H 01/18/25 18:37 114/78 01/18/25 18:22 93 H 01/18/25 18:22 129/87 01/18/25 18:07 99 H 01/18/25 18:07 137/87 O2 Del Method 01/19/25 03:10 Room Air 01/18/25 23:25 Room Air 01/18/25 21:42 Room Air 01/18/25 19:21 01/18/25 19:21 01/18/25 19:20 01/18/25 19:07 01/18/25 19:07 01/18/25 18:52 01/18/25 18:52 01/18/25 18:37 01/18/25 18:37 01/18/25 18:22 01/18/25 18:22 01/18/25 18:07 01/18/25 18:07 Laboratory Results 01/18/25 Range/Units 10:40 WBC 8.41 (4.8-10.8) K/ul RBC 3.73 L (4.20-5.40) M/uL Hgb 10.2 L (12.0-16.0) g/dl Hct 31.4 L (37.0-47.0) % MCV 84.2 (80.0-100.0) fL MCH 27.3 (25.0-34.0) pg MCHC 32.5 (32.0-36.0) g/dL RDW Std Deviation 41.0 (36.4-46.3) fL RDW Coeff of Sarah 13.4 (11.5-14.5) % Plt Count 238 (130-400) K/uL MPV 11.3 (9.4-12.4) fL Treponema pallidum Ab Negative (Negative)
[2025-01-19] MEDS: PRENATAL VITAMIN 1 TAB PO SCH (07:50)
[2025-01-19 09:41] VITALS: RESP 18
[2025-01-19 17:06] VITALS: BP 123/83; PULSE 92; TEMP 98.4; O2SAT 98
== END 2025-01-19 18:26 | disposition home or self-care (01) | DRG 807 ==
LOC: 4S1 10:06 → 4E2 19:46